=== PATIENT | female | born 1960 | race Caucasian/White ===

== ENCOUNTER 2017-01-02 16:39 | Observation (INO) | payer OTHER ==
[~2017-01-02] VITALS: Ht 162.6 cm; Wt 53.2 kg
[~2017-01-02 16:39] MED LIST: EPIP0.3I IM; MORP20SO PO; PRED20 PO; RANI150 PO
[2017-01-02 16:46] VITALS: BP 131/75; PULSE 73; RESP 16; TEMP 98.3; O2SAT 97
[2017-01-02 17:00] VITALS: RESP 16; O2SAT 99
[2017-01-02] MEDS ORDERED: LEXA20TA PO (17:06)
[2017-01-02] MEDS ORDERED: MORP1TAB24 PO (17:06)
[2017-01-02] MEDS ORDERED: ALPR0.5T3 PO (17:06)
[2017-01-02] MEDS ORDERED: TOPA25TA8 PO (17:06)
[2017-01-02] MEDS ORDERED: [UNRECOGNIZED DRUG - OTHER] PO (17:06)
--- NOTE | 2017-01-02 17:07 | PD ---
HPI Chief Complaint: General Weakness Time Seen by Provider: 16:53 Travel History International Travel<30 days: No Contact w/Intl Traveler<30days: No Traveled to known affect area: No History of Present Illness HPI The patient was seen and examined in the presence of the nurse. She complains of chest pain. Location is left upper chest. Duration one week. Symptoms are intermittent. Severity is moderate. They are not exertional. Describes it like an aching and a pinching sensation that can last a few minutes or few hours. Not short of breath. No fever or cough or injury. She one month ago had a double mastectomy for breast cancer which she states is cured and she is cancer free not on chemotherapy or radiation. Had a stress test that was -6 years ago but nothing since. 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) Cardiovascular Problems: Yes Chemotherapy: No Chest Pain: Yes Congestive Heart Failure: No COPD: No Cerebrovascular Accident: No Diabetes: No Diminished Hearing: No Endocrine: No Fibromyalgia: Yes Gastrointestinal Disorders: Yes (IBS, DIVERTICULOSIS) GERD: No Genitourinary: Yes Headaches: Yes Hiatal Hernia: No Heparin Induced Thrombocytopen: No Herniated Disk: Yes Hypertension: No Immune Disorder: No Implanted Vascular Access Dvce: No Kidney Stones: Yes (6 LITHOTRIPSY, 1 SURGERY AND ONE PASSED) Musculoskeletal: Yes (PARRA LOWER BACK, SPINAL STENOSIS, DEGENERATIVE DISC DISEASE) Neurologic: Yes Psychiatric: Yes Reproductive: No Respiratory: Yes (VALLEY FEVER ) Immunizations Current: Yes Migraines: Yes Pneumonia: Yes Radiation Therapy: No Renal Failure: No Seizures: No Sickle Cell Disease: No Sleep Apnea: No Thyroid Disease: No Ulcer: No Influenza Vaccination: No ?: Not Menopausal: Yes Past Surgical History Abdominal Surgery: No AICD: No Arteriovenous Shunt: No Body Medical Devices: METAL IN NECK Cardiac Surgery: No Ear Surgery: No Endocrine Surgery: No Eye Surgery: Yes (TEARDUCT) Genitourinary Surgery: No Gynecologic Surgery: Yes (CRYO SURGERY - CERVICAL CANCER) Insulin Pump: No Joint Replacement: No Mastectomy: Yes (bilateral one month ago) Neurologic Surgery: No Oral Surgery: No Pacemaker: No Thoracic Surgery: No Other Surgery: Yes (BIOSPY OF LUNGS) Social History Alcohol Use: Yes (OCCASSIONALLY) Tobacco Use: Yes (FEW REGULAR CIGARETTES AND ELECTRIC) Substance Use: No Allergies-Medications (Allergen,Severity, Reaction): Coded Allergies: Caffeine (Verified Allergy, Intermediate, TACHYCARDIA, 01/02/17) Sudafed (Verified Allergy, Mild, vomiting, 01/02/17) Contrast Media (Verified Adverse Reaction, Unknown, chest pressure, ) PT STATES NOT ALLERGIC, HAD THIS RECENTLY WITH NO REACTION Uncoded Allergies: COLD MEDS (Adverse Reaction, Intermediate, TACHYCARDIA., 02/25/16) Reported Meds & Prescriptions Reported Meds & Active Scripts Active Reported [veverzi] 100 Mg PO BID Topamax (Topiramate) 25 Mg Tab 25 Mg PO DAILY Lexapro (Escitalopram Oxalate) 20 Mg Tab 20 Mg PO DAILY Alprazolam 0.5 Mg Tab 0.5 Mg PO BID PRN Morphine ER (Morphine Sulfate) 15 Mg Tab 15 Mg PO BID Review of Systems General / Constitutional: No: Fever Eyes: No: Visual changes HENT: Positive: Lightheadedness, No: Headaches Cardiovascular: Positive: Chest Pain or Discomfort Respiratory: No: Shortness of Breath Gastrointestinal: No: Abdominal Pain Genitourinary: No: Dysuria Musculoskeletal: No: Pain Skin: No Rash Neurologic: No: Weakness Psychiatric: No: Depression Endocrine: No: Polydipsia Hematologic/Lymphatic: No: Easy Bruising Physical Exam Narrative GENERAL: Well-nourished, well-developed patient in no apparent distress. SKIN: Focused skin assessment reveals no rash and nodules. Skin is Warm and dry. HEAD: Atraumatic. Normocephalic. EYES: Pupils equal and round. No scleral icterus. No injection or drainage. ENT: No nasal bleeding or discharge. Mucous membranes pink and moist. NECK: Trachea midline. No JVD. CARDIOVASCULAR: Regular rate and rhythm. No murmur appreciated. RESPIRATORY: No accessory muscle use. Clear to auscultation. Breath sounds equal bilaterally. GASTROINTESTINAL: Abdomen soft, non-tender, nondistended. Hepatic and splenic margins not palpable. MUSCULOSKELETAL: No obvious deformities. No clubbing. No cyanosis. No edema. Had bilateral mastectomy. Has some muscular tenderness and a variety of areas she reports is her fibromyalgia but not replicating or chest pain complaints NEUROLOGICAL: Awake and alert. No obvious cranial nerve deficits. Motor grossly within normal limits. Normal speech. PSYCHIATRIC: Appropriate mood and affect; insight and judgment normal. Data Data Last Documented VS Vital Signs Date Time Temp Pulse Resp B/P Pulse Ox O2 Delivery O2 Flow Rate FiO2 01/02/17 17:00 16 99 Room Air 01/02/17 16:46 98.3 73 131/75 Orders Electrocardiogram (01/02/17 17:02) Basic Metabolic Panel (Bmp) (01/02/17 17:02) Ckmb (Isoenzyme) Profile (01/02/17 17:02) Complete Blood Count With Diff (01/02/17 17:02) Prothrombin Time / Inr (Pt) (01/02/17 17:02) Act Partial Throm Time (Ptt) (01/02/17 17:) Troponin I (01/02/17 17:02) Chest, Single Ap (01/02/17 17:02) Ecg Monitoring (01/02/17 17:02) Iv Access Insert/Monitor (01/02/17 17:) Oximetry (01/02/17 17:02) Aspirin (Aspirin) (01/02/17 17:15) Sodium Chloride 0.9% Flush (Ns Flush) (01/02/17 17:15) Labs Laboratory Tests Test 01/02/17 17:00 White Blood Count 4.7 TH/MM3 Red Blood Count 4.53 MIL/MM3 Hemoglobin 14.6 GM/DL Hematocrit 42.6 % Mean Corpuscular Volume 94.0 FL Mean Corpuscular Hemoglobin 32.2 PG Mean Corpuscular Hemoglobin 34.3 % Concent Red Cell Distribution Width 13.6 % Platelet Count 229 TH/MM3 Mean Platelet Volume 7.5 FL Neutrophils (%) (Auto) 64.9 % Lymphocytes (%) (Auto) 26.8 % Monocytes (%) (Auto) 5.8 % Eosinophils (%) (Auto) 1.5 % Basophils (%) (Auto) 1.0 % Neutrophils # (Auto) 3.1 TH/MM3 Lymphocytes # (Auto) 1.2 TH/MM3 Monocytes # (Auto) 0.3 TH/MM3 Eosinophils # (Auto) 0.1 TH/MM3 Basophils # (Auto) 0.0 TH/MM3 CBC Comment DIFF FINAL Differential Comment Prothrombin Time 10.7 SEC Prothromb Time International 1.0 RATIO Ratio Activated Partial 27.9 SEC Thromboplast Time Sodium Level 144 MEQ/L Potassium Level 3.7 MEQ/L Chloride Level 109 MEQ/L Carbon Dioxide Level 25.8 MEQ/L Anion Gap 9 MEQ/L Blood Urea Nitrogen 9 MG/DL Creatinine 0.82 MG/DL Estimat Glomerular Filtration 73 ML/MIN Rate Random Glucose 116 MG/DL Calcium Level 8.5 MG/DL Total Creatine Kinase 68 U/L Troponin I LESS THAN 0.02 NG/ML MDM Medical Decision Making Medical Screen Exam Complete: Yes Emergency Medical Condition: Yes Medical Record Reviewed: Yes Differential Diagnosis Differential diagnosis includes AK, angina, pericarditis, pleurisy, GERD, anxiety. Narrative Course I have reviewed the patient's electronic medical record. Reviewed her oncologist note from October 2016 IV placed I reviewed the EKG which shows sinus rhythm but no ST elevation I reviewed the chest x-ray is normal Extended cardiac monitoring shows sinus rhythm without ectopy CBC is normal Metabolic profile is normal CK is normal Troponin is normal Coagulation studies are normal I gave her an aspirin Patient has risk factors of smoking and family history of CAD. Her workup here is negative. She will be a 23 hour observation in the chest pain center in order to rule out cardiac cause of her symptoms. I paged the hospitalist to discuss Diagnosis Primary Impression: Chest pain in adult Admitting Information Admitting Physician Requests: Observation Raymon Dave MD Jan 02, 2017 17:07
[2017-01-02] MEDS ORDERED: SODIUM CHLORIDE 0.9% FLUSH 10 ML FLUSH IVF PRN (17:15)
[2017-01-02] MEDS ORDERED: ASPIRIN 325 MG TAB PO ONE (17:15)
[2017-01-02 17:18] LABS: AUTOMATED NEUTROPHIL # 3.1 TH/MM3 (1.8-7.7); EOSINOPHIL # 0.1 TH/MM3 (0-0.4); EOSINOPHIL % 1.5 % (0.0-4.0); HEMATOCRIT 42.6 % (35.0-46.0); HEMO FLAGS DIFF FINAL; LYMPH % 26.8 % (9.0-44.0); LYMPHOCYTE # 1.2 TH/MM3 (1.0-4.8); MEAN CORPUSCULAR HEMOGLOBIN 32.2 PG (27.0-34.0); MEAN CORPUSCULAR HGB CONC 34.3 % (32.0-36.0); MONO % 5.8 % (0.0-8.0); NEUT % 64.9 % (16.0-70.0); PLATELET COUNT 229 TH/MM3 (150-450); RED BLOOD COUNT 4.53 MIL/MM3 (4.00-5.30); RED CELL DISTRIBUTION WIDTH 13.6 % (11.6-17.2); WHITE BLOOD COUNT 4.7 TH/MM3 (4.0-11.0)
--- NOTE | 2017-01-02 17:25 | RADHPO ---
EXAM DATE/TIME: 01/02/2017 17:20 [facility] COMPARISON: CHEST SINGLE AP, March 18, 2013, 21:13. INDICATIONS : General weakness and light headed. MEDICAL HISTORY : None. SURGICAL HISTORY : None. ENCOUNTER: Initial ACUITY: 1 week PAIN SCORE: 1/10 LOCATION: Bilateral chest FINDINGS: A single view of the chest demonstrates the lungs to be symmetrically aerated without evidence of mas s, infiltrate or effusion. The cardiomediastinal contours are unremarkable. Osseous structures are intact. CONCLUSION: Normal examination. Ric Christine MD on January 02, 2017 at 17:24 Board Certified Radiologist. This report was verified electronically.
[2017-01-02 17:27] LABS: CHLORIDE 109 MEQ/L (98-107); POTASSIUM 3.7 MEQ/L (3.5-5.1); SODIUM (NA) 144 MEQ/L (136-145)
[2017-01-02 17:30] LABS: ANION GAP 9 MEQ/L (5-15); BICARBONATE 25.8 MEQ/L (21.0-32.0); BLOOD UREA NITROGEN 9 MG/DL (7-18)
[2017-01-02 17:34] LABS: GLOMERULAR FILTRATION RATE 73 ML/MIN (>89)
[2017-01-02 17:37] LABS: APTT (PATIENT) 27.9 SEC (24.3-30.1); PROTHROMBIN TIME - PATIENT 10.7 SEC (9.8-11.6)
[2017-01-02 18:02] LABS: CREATINE KINASE 68 U/L (26-192)
[2017-01-02] MEDS ORDERED: SODIUM CHLORIDE 0.9% FLUSH 10 ML FLUSH IV FLUSH PRN (18:30)
[2017-01-02] MEDS ORDERED: ONDANSETRON HCL 4 MG/2 ML VIAL IV PRN ×2 (18:30→19:15)
[2017-01-02 18:43] VITALS: BP 131/72
[2017-01-02] MEDS ORDERED: ACETAMINOPHEN 325 MG TAB PO PRN (19:15)
[2017-01-02] MEDS ORDERED: ALPRAZolam 0.5 MG TAB PO PRN (19:15)
[2017-01-02] MEDS ORDERED: NITROGLYCERIN 0.4 MG SL 25 TABS/BTL SL PRN (19:15)
[2017-01-02] MEDS ORDERED: CALCIUM CARBONATE 500 MG CHEWABLE TAB CHEW PRN (19:15)
[2017-01-02] MEDS ORDERED: MAGNESIUM HYDROXIDE SUSP 30 ML CUP PO PRN (19:15)
[2017-01-02] MEDS ORDERED: DOCUSATE SODIUM 100 MG CAP PO PRN (19:15)
[2017-01-02 19:40] VITALS: O2SAT 98
[2017-01-02 20:00] VITALS: PULSE 58
[2017-01-02 20:22] LABS: CREATINE KINASE 59 U/L (26-192)
[2017-01-02] MEDS: ACETAMINOPHEN/HYDROcodone 325 MG/5 MG TAB PO PRN (20:33)
[2017-01-02] MEDS: SODIUM CHLORIDE 0.9% FLUSH 10 ML FLUSH IV FLUSH SCH (20:34)
[2017-01-02 20:40] VITALS: BP 121/70; PULSE 56; RESP 14; TEMP 98.1; O2SAT 96
[2017-01-02 23:07] LABS: CREATINE KINASE 58 U/L (26-192)
[2017-01-03 00:02] VITALS: BP 143/83; PULSE 70; RESP 14; TEMP 98.3; O2SAT 98
[2017-01-03] MEDS: ACETAMINOPHEN/HYDROcodone 325 MG/5 MG TAB PO PRN ×4 (00:34→14:19)
[2017-01-03 04:02] VITALS: BP 142/75; PULSE 66; RESP 20; TEMP 96.3; O2SAT 98
--- NOTE | 2017-01-03 07:03 | HHI.HP ---
[facility] Primary Care Physician Yohan Paul DO Admission Diagnosis chest pain Diagnoses: (1) Chest pain in adult Diagnosis: Principal Chief Complaint: Chest pain Travel History International Travel<30 Days: No Contact w/Intl Traveler <30 Da: No Traveled to Known Affected Are: No History of Present Illness 56-year-old female with chronic medical illnesses of neck pain, back pain, fibromyalgia, anxiety, depression, recent surgeries for ductal carcinoma in situ who presented to the emergency department because of symptoms to include cephalgia, chest pain which have been escalating over the last 2 weeks. Patient states that she recently underwent bilateral mastectomy by Dr. Fletcher. She had expanders put in for future surgery, however, she indicates that it became infected due to chemical burn from chlorhexidine. Approximately one month ago she had repeat breast surgery for hot room attendant removal. Since then she is just not felt right. Over the last 2 weeks she has been experiencing when she wakes up the morning with a left-sided headache without any pain on mastication, ear pain; chest discomfort in the left side of her chest which she describes as a pinching sensation deep within her chest. It is nonpalpable. There is no radiation to the neck, back, shoulder, arm. She has had some nausea but no vomiting. She has had dizziness. She denies any shortness of breath or dyspnea. She went to her primary medical doctor's office 3 days ago and she indicates that her diastolic blood pressure was elevated. She was told by her primary medical doctor that if she continued to worsen that she should go to the emergency department for evaluation. Because the pain and symptoms did not resolve. The pain continued to escalate starting in the morning into the evening. She indicates that if she laid down and relaxed the pain would improve. She does not indicate that the pain is worse with exertion. The patient came to emergency department for evaluation as indicated by her primary medical doctor. Patient had workup done emergency department is recommended observation chest pain center. Review of Systems Constitutional: COMPLAINS OF: Dizziness, DENIES: Diaphoretic episodes, Fatigue , Fever, Weight gain, Weight loss, Chills, Change in appetite, Night Sweats Eyes: COMPLAINS OF: Photosensitivity, DENIES: Blurred vision, Diplopia, Eye inflammation, Eye pain, Vision loss, Double Vision Ears, nose, mouth, throat: COMPLAINS OF: Running Nose, DENIES: Vertigo, Nasal discharge, Throat pain, Ear Pain, Sinus Pain Respiratory: DENIES: Apneas, Cough, Snoring, Wheezing, Hemoptysis, Sputum production, Shortness of breath Cardiovascular: COMPLAINS OF: Chest pain, DENIES: Palpitations, Syncope, Dyspnea on Exertion, Lower Extremity Edema, Orthopnea Gastrointestinal: COMPLAINS OF: Diarrhea (intermittent with her irritable bowel syndrome), DENIES: Abdominal pain, Black stools, Bloody stools, Constipation, Nausea, Vomiting, Difficulty Swallowing, Anorexia Neurologic: COMPLAINS OF: Headache, Paresthesias (chronic), DENIES: Abnormal gait, Localized weakness, Seizures, Speech Problems, Tremor, Poor Balance Past Family Social History Past Medical History History tachycardia Irritable bowel surgery History cervical cancer History of renal lithiasis Spinal stenosis Anxiety/depression Breast cancer with ductal carcinoma in situ History of valley fever Fibromyalgia Past Surgical History Cervical fusion C5-C6 Right knee surgery Lithotripsy Cystoscopy Bilateral mastectomy Breast surgery with removal of hardware due to infection Lung biopsy Reported Medications Reported Meds & Active Scripts Active Reported [veverzi] 100 Mg PO BID Topamax (Topiramate) 25 Mg Tab 25 Mg PO DAILY Lexapro (Escitalopram Oxalate) 20 Mg Tab 20 Mg PO DAILY Alprazolam 0.5 Mg Tab 0.5 Mg PO BID PRN Morphine ER (Morphine Sulfate) 15 Mg Tab 15 Mg PO BID Allergies: Coded Allergies: Caffeine (Verified Allergy, Intermediate, TACHYCARDIA, 01/02/17) Sudafed (Verified Allergy, Mild, vomiting, 01/02/17) Contrast Media (Verified Adverse Reaction, Unknown, chest pressure, ) PT STATES NOT ALLERGIC, HAD THIS RECENTLY WITH NO REACTION Uncoded Allergies: COLD MEDS (Adverse Reaction, Intermediate, TACHYCARDIA., 02/25/16) Family History Reviewed is significant for mother having a stroke, grandfather, brother, aunt with early onset heart disease. Sister with cancer Social History Patient continues to smoke up to half a pack a cigarettes a day since she was 16 years old. She drinks alcohol occasionally. Denies any active illicit drug use Physical Exam Vital Signs Vital Signs Date Time Temp Pulse Resp B/P Pulse Ox O2 Delivery O2 Flow Rate FiO2 01/03/17 06:22 20 01/03/17 04:02 96.3 66 20 142/75 98 01/03/17 00:02 98.3 70 14 143/83 98 01/02/17 20:40 98.1 56 14 121/70 96 01/02/17 20:00 58 01/02/17 19:40 98 21 01/02/17 18:43 74 16 131/72 98 01/02/17 17:00 16 99 Room Air 01/02/17 16:46 98.3 73 16 131/75 97 Physical Exam GENERAL: Well-developed, well-nourished, in no acute distress. alert and orientated HEENT: Head is normocephalic without any lesions or masses noted. Facial features are symmetric. Eyes: Pupils equal round reactive to light. Extraocular muscles are intact. Conjunctivae were clear. Oropharyngeal: Pharynx without any erythema edema. Tongue is midline without deviation. Buccal mucosa is moist without any masses or lesions. Palpable tenderness noted of the left temporal artery NECK: Supple without any masses. Trachea midline no deviation. No JVD, no bruits are appreciated CARDIAC: Regular rhythm, regular rate. S1/S2 are heard. No murmurs gallops or rubs. LUNGS: Clear to auscultation bilaterally. No wheeze, rhonchi or rales. No use of accessory muscles on inspiration or expiration. ABDOMEN: Soft, nontender. Nondistended. Bowel sounds heard in all 4 quadrants. No organomegaly or masses. Negative rebound, negative guarding EXTREMITIES: No edema, pulses are equal bilaterally. No cyanosis or clubbing NEUROLOGY: Mood and affect appear appropriate. Cranial nerves II through XII grossly intact. Muscle strength 5/5 in upper and lower extremities bilaterally. Deep tendon reflexes are 2+ in upper and lower extremities bilaterally. Laboratory Laboratory Tests Test 01/02/17 01/02/17 01/02/17 17:00 19:53 22:35 White Blood Count 4.7 Red Blood Count 4.53 Hemoglobin 14.6 Hematocrit 42.6 Mean Corpuscular Volume 94.0 Mean Corpuscular Hemoglobin 32.2 Mean Corpuscular Hemoglobin 34.3 Concent Red Cell Distribution Width 13.6 Platelet Count 229 Mean Platelet Volume 7.5 Neutrophils (%) (Auto) 64.9 Lymphocytes (%) (Auto) 26.8 Monocytes (%) (Auto) 5.8 Eosinophils (%) (Auto) 1.5 Basophils (%) (Auto) 1.0 Neutrophils # (Auto) 3.1 Lymphocytes # (Auto) 1.2 Monocytes # (Auto) 0.3 Eosinophils # (Auto) 0.1 Basophils # (Auto) 0.0 CBC Comment DIFF FINAL Differential Comment Prothrombin Time 10.7 Prothromb Time International 1.0 Ratio Activated Partial 27.9 Thromboplast Time Sodium Level 144 Potassium Level 3.7 Chloride Level 109 Carbon Dioxide Level 25.8 Anion Gap 9 Blood Urea Nitrogen 9 Creatinine 0.82 Estimat Glomerular Filtration 73 Rate Random Glucose 116 Calcium Level 8.5 Total Creatine Kinase 68 59 58 Troponin I LESS THAN 0.02 LESS THAN 0.02 LESS THAN 0.02 Result Diagram: 01/02/17 1700 01/02/17 170 Imaging Chest x-ray image interpreted by me with no acute cardiopulmonary disease Last Impressions Chest X-Ray 01/02/171701 Signed Impressions: Service Date/Time: Monday, January 02, 2017 17:20 - CONCLUSION: Normal examination. Ric Christine MD Assessment and Plan Problem List: (1) Chest pain in adult ICD Code: R07.9 Status: Acute Assessment and Plan Chest pain, atypical: Patient with increased risk factors to include tobacco use , family history of heart disease. Patient had been ruled out for any acute coronary event with serial cardiac enzymes which are negative. Serial EKGs reviewed by myself which shows sinus rhythm with possible septal infarct age indeterminate. Will pursue exercise stress test rule out any underlying ischemia. Patient continued on aspirin, nitroglycerin as needed, Spring for pain. If patient ruled out for any underlying ischemia. Pain can be associated with postsurgical pain from multiple recent breast surgeries Left-sided headache with palpable temporal artery palpation. Obtain sedimentation rate rule out giant cell arteritis Patient's chronic medical illnesses to include anxiety/depression/fibromyalgia/ neck and back pain: Resume home medications DVT prevention: Low risk, early ambulation Written by Raymon Ferrer, acting as scribe for Dr. Montoya on 01/03/17 at 10: 16. This note was transcribed by scribe Raymon Ferrer,. I, Dr. Yovany Montoya personally performed the history, physical exam, and medical decision making; and confirmed the accuracy of the information in the transcribed note. Authenticated by Dr. Yovany Montoya on 01/03/17 at 13:29. Discharge disposition Discharge home in stable condition Activity: Ad mary. Diet: Healthy heart diet Medications per medication reconciliation Follow-up with primary medical doctor in one week Raymon Ferrer Jan 03, 2017 07:03 Yovany Montoya MD Jan 03, 2017 13:29
[2017-01-03 08:00] VITALS: BP 101/75; PULSE 56; RESP 16; TEMP 96.9; O2SAT 96
[2017-01-03 08:12] VITALS: O2SAT 97
[2017-01-03] MEDS ORDERED: ASPIRIN 325 MG TAB PO SCH (09:00)
[2017-01-03] MEDS ORDERED: TOPIRAMATE 25 MG TAB PO SCH (09:00)
[2017-01-03] MEDS ORDERED: ESCITALOPRAM OXALATE 20 MG TAB PO SCH (09:00)
[2017-01-03 09:30] VITALS: PULSE 58
[2017-01-03] MEDS: SODIUM CHLORIDE 0.9% FLUSH 10 ML FLUSH IV FLUSH SCH (09:42)
[2017-01-03 12:00] VITALS: BP 108/71; PULSE 61; RESP 16; TEMP 97.5; O2SAT 97
--- NOTE | 2017-01-03 13:45 | TR ---
Date Performed: 01/03/2017 Time Performed: 12:51:22 DOCTOR: Andrew Sullivan DRUG LIST: CLINICAL HISTORY: REASON FOR TEST: REASON FOR ENDING: Completed Protocol OBSERVATION: Chest Pain: None CONCLUSION: Tolerated CASA protocol with Total Exercise Time=10:07 Maximum RG=039 % Max HR Achi eved=88.0% Maximum HV=813/66, Testing stopped secondary to goals acheived, patient was asymptomatic d uring testing, During peak exercise patient had ST depresions in inferior leads, HR and BP appropriat e response to exercise. Recovery period, HR and BP returned to baseline COMMENTS: ST depression inferiorly all upsloping,no flat ST depression seen.Conclusion: Normal t readmill exercise. No evidence of ischemia.
--- NOTE | 2017-01-03 14:05 | HHI.DCPOC ---
Discharge Care Plan Diagnosis: (1) Chest pain in adult Goals to Promote Your Health * To prevent worsening of your condition and complications * To maintain your health at the optimal level Directions to Meet Your Goals Take your medications as prescribed Follow your dietary instruction Follow activity as directed Keep your appointments as scheduled Take your immunizations and boosters as scheduled If your symptoms worsen call your PCP, if no PCP go to Urgent Care Center or Emergency Room Smoking is Dangerous to Your Health. Avoid second hand smoke Call the 24-hour hour crisis hotline for domestic abuse at Raymon Ferrer Jan 03, 2017 14:05
--- NOTE | 2017-01-03 14:53 | EKG ---
Date Performed: 01/02/2017 Time Performed: 22:26:20 PTAGE: 56 years EKG: Sinus rhythm . Possible septal infarct - age undetermined Abnormal ECG PREVIOUS TRACING : 01/02/2017 19.48 DOCTOR: Andrew Sullivan Interpretating Date/Time 01/03/2017 14:52:14
--- NOTE | 2017-01-03 14:55 | EKG ---
Date Performed: 01/02/2017 Time Performed: 19:48:04 PTAGE: 56 years EKG: Sinus bradycardia. Poor R wave progression Abnormal ECG PREVIOUS TRACING : 01/02/2017 17.09 Since previous tracing, no significant change noted DOCTOR: Andrew Sullivan Interpretating Date/Time 01/03/2017 14:54:26
--- NOTE | 2017-01-03 14:56 | EKG ---
Date Performed: 01/02/2017 Time Performed: 17:09:22 PTAGE: 56 years EKG: Sinus rhythm Poor R wave progression Abnormal ECG PREVIOUS TRACING : 12/23/2012 21.53 Since previous tracing, no significant change noted DOCTOR: Andrew Sullivan Interpretating Date/Time 01/03/2017 14:55:22
--- NOTE | 2017-01-05 10:25 | TR ---
Date Performed: 01/03/2017 Time Performed: 12:51:22 DOCTOR: Andrew Sullivan DRUG LIST: CLINICAL HISTORY: REASON FOR TEST: REASON FOR ENDING: Completed Protocol OBSERVATION: Chest Pain: None CONCLUSION: Tolerated CASA protocol with Total Exercise Time=10:07 Maximum WW=781 % Max HR Achi eved=88.0% Maximum [place]=600/66, Testing stopped secondary to goals acheived, patient was asymptomatic d uring testing, During peak exercise patient had ST depresions in inferior leads, HR and BP appropriat e response to exercise. Recovery period, HR and BP returned to baseline COMMENTS: ST depression inferiorly all upsloping,no flat ST depression seen.Conclusion: Normal t readmill exercise. No evidence of ischemia.
== END 2017-01-03 15:40 | disposition home or self-care (01) ==
LOC: PHED 16:39 → PHEDA 18:18 → PH3A 19:03
PROVIDERS: ADMIT Internal Medicine; ATTEND Internal Medicine
DX: R07.89 Other chest pain (principal); M79.7 Fibromyalgia; F41.9 Anxiety disorder, unspecified; F32.9 Major depressive disorder, single episode, unspecified; F17.210 Nicotine dependence, cigarettes, uncomplicated; R51 Headache; M54.9 Dorsalgia, unspecified; M54.2 Cervicalgia; M19.90 Unspecified osteoarthritis, unspecified site; Z82.49 Family history of ischemic heart disease and other diseases of the circulatory system; Z85.41 Personal history of malignant neoplasm of cervix uteri; Z91.041 Radiographic dye allergy status; Z85.3 Personal history of malignant neoplasm of breast; Z90.13 Acquired absence of bilateral breasts and nipples; Z88.5 Allergy status to narcotic agent; Z88.8 Allergy status to other drugs, medicaments and biological substances; Z85.828 Personal history of other malignant neoplasm of skin
CPT/HCPCS: 71010; 80048; 82550; 84484; 85025; 85610; 85652; 85730; 93005; 93017; 99285; G0378; J2405

== ENCOUNTER 2018-01-31 01:13 | Emergency (ER) | payer OTHER ==
[~2018-01-31] VITALS: Ht 162.6 cm; Wt 54.2 kg
[~2018-01-31 01:13] MED LIST changes: +ALPR0.5T3 PO; -EPIP0.3I IM; +LEXA20TA PO; +MORP1TAB24 PO; -MORP20SO PO; -PRED20 PO; -RANI150 PO; +TOPI25 PO; +[UNRECOGNIZED DRUG - OTHER] PO
[2018-01-31 01:19] VITALS: BP 152/74; PULSE 76; RESP 16; TEMP 98.7; O2SAT 98
--- NOTE | 2018-01-31 02:15 | PD ---
HPI Chief Complaint: Skin Problem Time Seen by Provider: 01:33 Travel History International Travel<30 days: No Contact w/Intl Traveler<30days: No Traveled to known affect area: No History of Present Illness HPI This is a 57-year-old female who has a history of breast cancer having had implants placed in November of this year who presents to the emergency department with discharge from her left nipple. She says she felt a hard growth on her nipple on the left earlier today and took a shower and then noticed that she could squeeze discharge out of her nipple. It was a white thick discharge and she says she had about a fingertip full. She has minimal pain in the left nipple. She denies any surrounding redness or warmth. She has had no fever chills. She was concerned that she either had an infection or that her implant leaked. 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) Cardiovascular Problems: Yes Chemotherapy: No Chest Pain: Yes Congestive Heart Failure: No COPD: No Cerebrovascular Accident: No Diabetes: No Diminished Hearing: No Endocrine: No Fibromyalgia: Yes Gastrointestinal Disorders: Yes (IBS, DIVERTICULOSIS) GERD: No Genitourinary: Yes Headaches: Yes Hiatal Hernia: No Heparin Induced Thrombocytopen: No Herniated Disk: Yes Hypertension: No Immune Disorder: No Implanted Vascular Access Dvce: No Kidney Stones: Yes (6 LITHOTRIPSY, 1 SURGERY AND ONE PASSED) Musculoskeletal: Yes (PARRA LOWER BACK, SPINAL STENOSIS, DEGENERATIVE DISC DISEASE) Neurologic: Yes Psychiatric: Yes Reproductive: No Respiratory: Yes (VALLEY FEVER ) Immunizations Current: Yes Migraines: Yes Pneumonia: Yes Radiation Therapy: No Renal Failure: No Seizures: No Sickle Cell Disease: No Sleep Apnea: No Thyroid Disease: No Ulcer: No Menopausal: Yes Past Surgical History Abdominal Surgery: No AICD: No Arteriovenous Shunt: No Body Medical Devices: METAL IN NECK Cardiac Surgery: No Ear Surgery: No Endocrine Surgery: No Eye Surgery: Yes (TEARDUCT) Genitourinary Surgery: No Gynecologic Surgery: Yes (CRYO SURGERY - CERVICAL CANCER) Insulin Pump: No Joint Replacement: No Mastectomy: Yes (bilateral one month ago) Neurologic Surgery: No Oral Surgery: No Pacemaker: No Thoracic Surgery: Yes (DOUBLE MASTECTOMY 11/2016) Other Surgery: Yes (BIOSPY OF LUNGS) Social History Alcohol Use: Yes (OCCASSIONALLY) Tobacco Use: Yes (FEW REGULAR CIGARETTES AND ELECTRIC) Substance Use: No Allergies-Medications (Allergen,Severity, Reaction): Coded Allergies: caffeine (Unverified Allergy, Intermediate, TACHYCARDIA, 05/06/17) pseudoephedrine (Unverified Allergy, Mild, vomiting, 05/06/17) diatrizoate meglumine (Unverified Adverse Reaction, Unknown, chest pressure, 05/06/17) PT STATES NOT ALLERGIC, HAD THIS RECENTLY WITH NO REACTION gadobenic acid (Unverified Adverse Reaction, Unknown, chest pressure, 05/06) PT STATES NOT ALLERGIC, HAD THIS RECENTLY WITH NO REACTION gadodiamide (Unverified Adverse Reaction, Unknown, chest pressure, 05/06/17 ) PT STATES NOT ALLERGIC, HAD THIS RECENTLY WITH NO REACTION gadoteridol (Unverified Adverse Reaction, Unknown, chest pressure, 05/06/17 ) PT STATES NOT ALLERGIC, HAD THIS RECENTLY WITH NO REACTION iodixanol (Unverified Adverse Reaction, Unknown, chest pressure, 05/06/17) PT STATES NOT ALLERGIC, HAD THIS RECENTLY WITH NO REACTION iohexol (Unverified Adverse Reaction, Unknown, chest pressure, 05/06/17) PT STATES NOT ALLERGIC, HAD THIS RECENTLY WITH NO REACTION Uncoded Allergies: COLD MEDS (Adverse Reaction, Intermediate, TACHYCARDIA., 02/25/16) Reported Meds & Prescriptions Reported Meds & Active Scripts Active Reported [veverzi] 100 Mg PO BID Topamax (Topiramate) 25 Mg Tab 25 Mg PO DAILY Lexapro (Escitalopram Oxalate) 20 Mg Tab 20 Mg PO DAILY Alprazolam 0.5 Mg Tab 0.5 Mg PO BID PRN Morphine ER (Morphine Sulfate) 15 Mg Tab 15 Mg PO BID Review of Systems Except as stated in HPI: all other systems reviewed are Neg Physical Exam Narrative GENERAL:Well appearing, no acute distress SKIN: Scant amount of thick white discharge a pinpoint center of the left nipple with no surrounding fluctuance, warmth or erythema HEAD: Atraumatic. Normocephalic. EYES: Pupils equal and round. No injection or drainage. ENT: Moist mucous membranes NECK: Trachea midline. CARDIOVASCULAR: Regular rate and rhythm. No murmur appreciated. RESPIRATORY: Clear to auscultation. Breath sounds equal bilaterally. GASTROINTESTINAL: Abdomen soft, non-tender, nondistended. MUSCULOSKELETAL: No obvious deformities. NEUROLOGICAL: Awake and alert. No obvious cranial nerve deficits. Moving all extremities. PSYCHIATRIC: Appropriate mood and affect; insight and judgment normal. Data Data Last Documented VS Vital Signs Date Time Temp Pulse Resp B/P (MAP) Pulse Ox O2 Delivery O2 Flow Rate FiO2 01/31/18 01:19 98.7 76 16 152/74 (100) 98 MDM Medical Decision Making Medical Screen Exam Complete: Yes Emergency Medical Condition: Yes Differential Diagnosis Abscess, cellulitis, implant rupture, sebaceous cyst Narrative Course This is a 57-year-old female who presents to the emergency department with discharge from her left nipple in the setting of a recent breast implant placed in November. She has no redness or warmth around the nipple. There is a scant amount of white thick discharge that appears consistent with a sebaceous cyst. I do not think she has an acute infection and I think she is safe to follow-up with her outpatient surgeon. I do not think she requires any antibiotics at this time. I did ask her to have a low threshold to return to the emergency department if she develops any warmth or redness around the area. Patient will be discharged home. Diagnosis Primary Impression: Sebaceous cyst of breast Qualified Codes: N60.82 - Other benign mammary dysplasias of left breast Patient Instructions: General Instructions Additional Instructions: If you develop any redness, warmth or fever return to the emergency room. Follow-up with your surgeon as soon as possible Med/Other Pt SpecificInfo: No Change to Meds Disposition: 01 DISCHARGE HOME Condition: Stable July Hughes MD January 31, 2018 02:15
== END 2018-01-31 02:46 | disposition home or self-care (01) ==
LOC: PHED 01:13
DX: N60.82 Other benign mammary dysplasias of left breast (principal); F32.9 Major depressive disorder, single episode, unspecified; F41.9 Anxiety disorder, unspecified; M79.7 Fibromyalgia; Z85.3 Personal history of malignant neoplasm of breast; Z85.828 Personal history of other malignant neoplasm of skin; Z90.13 Acquired absence of bilateral breasts and nipples; Z85.41 Personal history of malignant neoplasm of cervix uteri; F17.210 Nicotine dependence, cigarettes, uncomplicated
CPT/HCPCS: 99281